=== PATIENT | male | born 1985 ===

== ENCOUNTER 2020-01-19 17:35 | Emergency (ER) | payer MEDICAID, OTHER ==
--- NOTE | 2020-01-19 18:04 | EDM.PDOC ---
ED HPI GENERAL MEDICAL PROBLEM - General Chief Complaint: General Stated Complaint: runny nose and itchy throat Time Seen by Provider: 01/19/20 18:01 Source of Information: Reports: Patient History Limitations: Reports: No Limitations - History of Present Illness INITIAL COMMENTS - FREE TEXT/NARRATIVE: Pt with cold symptoms since yesterday No fever dry cough Sore throat Onset: Gradual Duration: Day(s): Location: Reports: Head, Chest Severity: Mild - Related Data Allergies Allergy/AdvReac Type Severity Reaction Status Date / Time No Known Allergies Allergy Verified 01/19/20 17:38 Home Meds: Home Meds Ibuprofen 100 mg PO Q6HR 01/19/20 [History] Non-Formulary Medication [NF Drug] 1 each PO ASDIRECTED 01/19/20 [History] Past Medical History - Past Health History Medical/Surgical History: Denies Medical/Surgical History Social & Family History - Tobacco Use Smoking Status *Q: Current Some Day Smoker Years of Tobacco use: 0 Packs/Tins Daily: 0 Used Tobacco, but Quit: No - Caffeine Use Caffeine Use: Reports: Coffee - Recreational Drug Use Recreational Drug Use: No ED ROS GENERAL - Review of Systems Review Of Systems: See Below Constitutional: Reports: No Symptoms HEENT: Reports: Throat Pain Respiratory: Reports: Cough Cardiovascular: Reports: No Symptoms GI/Abdominal: Reports: No Symptoms ED EXAM, GENERAL - Physical Exam Exam: See Below Exam Limited By: No Limitations General Appearance: Alert, WD/WN, No Apparent Distress Ears: Normal TMs Nose: Normal Inspection Throat/Mouth: Normal Oropharynx Neck: Supple Respiratory/Chest: Lungs Clear Cardiovascular: Regular Rate, Rhythm Course - Vital Signs Last Recorded V/S: Last Vital Signs Temp 98.0 F 01/19/20 17:36 Pulse 92 01/19/20 17:36 Resp 16 01/19/20 17:36 BP 120/69 01/19/20 17:36 Pulse Ox 99 01/19/20 17:36 - Re-Assessments/Exams Free Text/Narrative Re-Assessment/Exam: 01/19/20 18:03 Pt stable in ER Departure - Departure Time of Disposition: 18:10 Disposition: Home, Self-Care 01 Clinical Impression: URI (upper respiratory infection) Qualifiers: URI type: unspecified viral URI Qualified Code(s): J06.9 - Acute upper respiratory infection, unspecified - Discharge Information *PRESCRIPTION DRUG MONITORING PROGRAM REVIEWED*: Not Applicable *COPY OF PRESCRIPTION DRUG MONITORING REPORT IN PATIENT JOSE MIGUEL: Not Applicable Instructions: Upper Respiratory Infection, Adult, [id number] Additional Instructions: Tylenol or Motrin as needed Follow up in clinic Robitussin, Mucinex, Dimetapp as needed for cold symptoms Sepsis Event Note - Evaluation Sepsis Screening Result: No Definite Risk - Focused Exam Vital Signs: Vital Signs Temp Pulse Resp BP Pulse Ox 01/19/20 17:36 98.0 F 92 16 120/69 99 Date Exam was Performed: 01/19/20 Time Exam was Performed: 18:01
== END 2020-01-19 18:10 | disposition home or self-care (01) ==
LOC: LL.ED 17:35
DX: J06.9 Acute upper respiratory infection, unspecified (principal); F17.210 Nicotine dependence, cigarettes, uncomplicated
CPT/HCPCS: 99283

== ENCOUNTER 2020-06-12 20:38 | Emergency (ER) | payer BC ==
--- NOTE | 2020-06-12 20:52 | EDM.PDOC ---
ED HPI GENERAL MEDICAL PROBLEM - General Chief Complaint: Upper Extremity Injury/Pain Stated Complaint: finger injury Time Seen by Provider: 06/12/20 20:45 Source of Information: Reports: Patient, Old Records ([facility] EMR. No paper hospital chart available.) History Limitations: Reports: No Limitations - History of Present Illness INITIAL COMMENTS - FREE TEXT/NARRATIVE: The patient was driven to the emergency room via private automobile by his for evaluation of 10/10 right hand pain after an extension injury on a baby cart while playing with his son at home at about 2015 hrs. this evening. No treatment prior to arrival, including medications, etc. The patient is right- handed, however has not injured this hand in the past. He denies any parest hesias, neurological deficits, or other complaints or injuries. No recent history of abdominal pain, heartburn, nausea, diarrhea, melena, gross hematochezia, or any food intolerance, including fatty foods, etc.. The patient also denies any recent fever, cough, wheezing, dyspnea, etc.. Onset: Today, Sudden Onset Date: 06/12/20 Onset Time: 20:15 Duration: Constant Location: Reports: Upper Extremity, Right. Denies: Head, Face, Neck, Chest, Abdomen, Back, Pelvis, Upper Extremity, Left, Lower Extremity, Left, Lower Extremity, Right, Radiates to Quality: Reports: Same as Previous Episode, Throbbing Severity: Severe Improves with: Reports: None Worsens with: Reports: None Context: Reports: Trauma (As above) Associated Symptoms: Denies: Confusion, Chest Pain, Cough, Diaphoresis, Fever/Chills, Headaches, Loss of Appetite, Nausea/Vomiting, Rash, Shortness of Breath, Syncope, Weakness Treatments BLOCK SEALER: Reports: Other (see below) (None) - Related Data Allergies Allergy/AdvReac Type Severity Reaction Status Date / Time No Known Allergies Allergy Verified 06/12/20 20:38 Home Meds: Home Meds . [No Known Home Meds] 06/12/20 [History] Past Medical History HEENT History: Reports: Other (See Below) Other HEENT History: Bilateral jaw dislocation secondary to kickboxing with the patient reducing the dislocation on his own and never evaluated by a provider. Cardiovascular History: Reports: None. Denies: Arrhythmia, Heart Murmur, High Cholesterol, Hypertension Respiratory History: Reports: Other (See Below). Denies: Asthma Other Respiratory History: Possible left rib fractures from kickboxing as below. Musculoskeletal History: Reports: Fracture Other Musculoskeletal History: Possible multiple fractures secondary to his kickboxing in the past, however not evaluated by providers, including possible finger fractures of the right hand especially digit #2, 2 fingers of his left hand, toes of his feet bilaterally and also his left ribs. Neurological History: Denies: Concussion, Head Trauma - Past Surgical History HEENT Surgical History: Reports: Oral Surgery, Other (See Below) Other HEENT Surgeries/Procedures: [place] teeth extraction with additional teeth extractions, etc. secondary to broken teeth from kickboxing. Male Surgical History: Reports: Circumcision, Other (See Below). Denies: Vasectomy Other Male Surgeries/Procedures: Circumcision as an . Musculoskeletal Surgical History: Reports: None. Denies: ORIF Social & Family History - Caffeine Use Caffeine Use: Reports: Coffee Review of Systems - Review of Systems Review Of Systems: Comprehensive ROS is negative, except as noted in HPI. ED EXAM, GENERAL - Physical Exam Exam: See Below Exam Limited By: No Limitations General Appearance: Alert, WD/WN, No Apparent Distress Head: Atraumatic, Normocephalic Neck: Normal Inspection, Supple, Non-Tender, Full Range of Motion. No: Lymphadenopathy (L), Lymphadenopathy (R), Thyromegaly Respiratory/Chest: No Respiratory Distress, Lungs Clear, Normal Breath Sounds, No Accessory Muscle Use, Chest Non-Tender. No: Pleural Rub, Retractions Cardiovascular: Normal Peripheral Pulses, Regular Rate, Rhythm, No Edema, No Gallop, No JVD, No Murmur, No Rub. No: Gallop/S3, Gallop/S4, Friction Rub Peripheral Pulses: 2+: Radial (L), Radial (R) GI/Abdominal: Normal Bowel Sounds, Soft, Non-Tender, No Organomegaly, No Distention, No Abnormal Bruit, No Mass, Pelvis Stable. No: Guarding (Male) Exam: Deferred Rectal (Males) Exam: Deferred Back Exam: Normal Inspection, Full Range of Motion. No: CVA Tenderness (L), CVA Tenderness (R), Muscle Spasm Extremities: Non-Tender (Right hand pain as below), Normal Capillary Refill, Joint Swelling (Moderate swelling over the MCP joint of digit #5 of the right hand with moderate localized tenderness with movement and palpation. No evidence of dislocation.), Limited Range of Motion (Digit #5 of the right hand secondary to injury as above). No: Pedal Edema, Brenda's Sign Neurological: Alert, Oriented, CN II-XII Intact, Normal Cognition, Normal Gait, No Motor/Sensory Deficits, Other (No clinical orthostasis) Psychiatric: Normal Affect, Normal Mood Skin Exam: Warm, Dry, Intact, Normal Color, No Rash. No: Diaphoretic, Wound/Incision Lymphatic: No Adenopathy ED TRAUMA EXTREMITY PROCEDURES - Splinting Right Upper Extremity Splint Site: Digit #5 of the right hand Pre-Procedure NV Status: Normal Post-Procedure NV Status: Normal Splint Material: Aluminum-Foam (Cut to fit) Splint Design: Other (Flexor extending to the proximal palm secured with a 2 inch Adan wrap and paper tape) Applied & Form Fitted By: Provider Provider Post-Splint Application NV Check: NV Status Normal, Good Position Complications: No Course - Vital Signs Last Recorded V/S: Last Vital Signs Temp 37.0 C 06/12/20 20:47 Pulse 86 06/12/20 20:47 Resp 12 06/12/20 20:47 BP 92/73 06/12/20 20:47 Pulse Ox 99 06/12/20 20:47 Vital Signs - 24 hr 06/12/20 20:47 Temperature [ 37.0 C Oral] Pulse, 86 Peripheral [ Left Pulse Oximetry] Respiratory 12 Rate Blood Pressure 92/73 [Left Upper Arm ] O2 Sat by Pulse 99 Oximetry - Orders/Labs/Meds Orders: Active Orders 24 hr Category Date Time Status Hand Comp Min 3V Rt [CR] Stat Exams 06/12/20 20:52 Ordered Obtain Past Medical Record [OM.PC] Routine Oth 06/12/20 20:52 Active Labs: None Meds: None - Radiology Interpretation Free Text/Narrative:: X-rays of his right hand, complete, shows evidence of a nondisplaced ulnar condyle fracture of the proximal aspect of the proximal phalanx with no dislocation, foreign body, etc. Departure - Departure Time of Disposition: 21:25 Disposition: Home, Self-Care 01 Condition: Good Clinical Impression: Tobacco abuse counseling, Finger fracture, right - Discharge Information *PRESCRIPTION DRUG MONITORING PROGRAM REVIEWED*: Not Applicable *COPY OF PRESCRIPTION DRUG MONITORING REPORT IN PATIENT JOSE MIGUEL: Not Applicable Instructions: Steps to Quit Smoking, [id number], Health Risks of Smoking, Finger Fracture, Adult, [id number], Cast or Splint Care, Adult, [id number] Referrals: PCP,None [Primary Care Provider] - Forms: ED Department Discharge Additional Instructions: 1. Followup with your regular provider in 7-10 days for reevaluation and repeat x-rays of digit #5 of your right hand as directed. Bring these discharge instructions with you to that visit. 2. Tylenol 650 mg by mouth every 4 hours and/or OTC ibuprofen 2-3 tabs by mouth every 6 hours with food as directed./needed. You may stagger these medications for 48-72 hours only, which essentially means that you are receiving a pain medication about every 2 hours. 3. Ice packs and hand elevation as discussed 4. Work excuse- See Form 5. Stop all tobacco use VON as directed/per provided information and consider contacting Quit LIne, etc.. 6. Immediately after this visit verify that your cellular telephone's voicemail has been activated and is empty. Also verify that your home telephone's answering machine is operating properly and has space to receive messages. Note that it is sometimes necessary for us to be able to contact you at a later date to discuss your medical care. Please remember that we are ALWAYS here for you and want to answer any questions you may have. Feel free to call the hospital any time and we call you back VON. 7. Please remember that we are ALWAYS here for you and want to answer any questions you may have. Feel free to call the hospital any time and we call you back VON. 8. Wear finger splint and Daan wrap at all times with the exception of bathing until otherwise directed by your regular provider. Sepsis Event Note (ED) - Evaluation Sepsis Screening Result: No Definite Risk - Focused Exam Vital Signs: Vital Signs Temp Pulse Resp BP Pulse Ox 06/12/20 20:47 37.0 C 86 12 92/73 99 - Problem List & Annotations (1) Finger fracture, right SNOMED Code(s): 29144017 Code(s): S62.609A - FRACTURE OF UNSP PHALANX OF UNSP FINGER, INIT FOR CLOS FX Status: Acute Priority: High Current Visit: Yes Onset Date: 06/12/20 Annotation/Comment:: Patient placed in a palmar splint as above. He did not wish to have an IM Toradol injection for pain control. Symptomatic relief as per discharge instructions. [employer]cat work excuse was provided. Activity restrictions, etc. were discussed. Qualifiers: Encounter type: initial encounter Finger: little finger Phalanx: proximal Fracture alignment: nondisplaced (2) Tobacco abuse counseling SNOMED Code(s): 309439332, 304819610, 219413841 Code(s): Z71.6 - TOBACCO ABUSE COUNSELING Status: Chronic Priority: Medium Current Visit: Yes Annotation/Comment:: Tobacco cessation strongly encouraged with tobacco cessation information provided. - Problem List Review Problem List Initiated/Reviewed/Updated: Yes - My Orders Last 24 Hours: My Active Orders 06/12/20 20:52 Hand Comp Min 3V Rt [CR] Stat Obtain Past Medical Record [OM.PC] Routine - Assessment/Plan Last 24 Hours: My Active Orders 06/12/20 20:52 Hand Comp Min 3V Rt [CR] Stat Obtain Past Medical Record [OM.PC] Routine Assessment:: As above Plan: As above. Extensive precautions were given to the patient, who is in agreement with the treatment plan. See Patient Instructions for further treatment and plan.
== END 2020-06-12 21:22 | disposition home or self-care (01) ==
LOC: LL.ED 20:38
DX: S62.646A Nondisplaced fracture of proximal phalanx of right little finger, initial encounter for closed fracture (principal); Z71.6 Tobacco abuse counseling; F17.210 Nicotine dependence, cigarettes, uncomplicated; W20.8XXA Other cause of strike by thrown, projected or falling object, initial encounter; Y92.89 Other specified places as the place of occurrence of the external cause; Y99.0 Civilian activity done for income or pay
CPT/HCPCS: 73130-RT; 99283-25